=== PATIENT | female | born 1945 ===

== ENCOUNTER 2022-11-03 10:23 | Inpatient (IN) | payer OTHER ==
[~2022-11-03] VITALS: Ht 157.5 cm; Wt 44.9 kg
[2022-11-04] MEDS ORDERED: VALSAR PO (12:44)
[2022-11-04] MEDS ORDERED: ATORVASTATIN CA20 MG PO (12:44)
[2022-11-04] MEDS ORDERED: PREDISONE PO (12:45)
[2022-11-04] MEDS ORDERED: SINGULAIR10 MG PO (12:45)
[2022-11-04] MEDS ORDERED: WIXELA 100-501 EACH IH (12:46)
[2022-11-10] MEDS ORDERED: PROAIR RESPICL90 MCG (10:15)
[2022-11-10] MEDS ORDERED: GABAPENTIN100 M2 (10:15)
[2022-11-10] MEDS ORDERED: PREDNISONE2.5 MG (10:15)
[2022-11-10] MEDS ORDERED: VALSARTAN-HCTZ1 EACH (10:15)
[2022-11-12] MEDS ORDERED: INTESTINEX680 M1 PO (16:53)
[2022-11-12] MEDS ORDERED: TRAM1TAB98 PO (16:53)
[2022-11-12] MEDS ORDERED: LEVSIN/SL0.125 MG SL (16:53)
[2022-11-12] MEDS ORDERED: BACTRIM DS TAB1 EACH PO (16:54)
== END 2022-11-12 17:22 | disposition home or self-care (01) | DRG 331 ==
LOC: O/R 11-09 06:20 → SURG 11-09 06:20 → SURH 11-09 16:09 → SURG 11-09 16:12
PROVIDERS: ADMIT Surgery; ATTEND Surgery
PROC: 0DTP4ZZ Resection of Rectum, Percutaneous Endoscopic Approach (ICD-10-PCS; 2022-11-09)
PROC: 0DBN4ZZ Excision of Sigmoid Colon, Percutaneous Endoscopic Approach (ICD-10-PCS; 2022-11-09)
PROC: 0DBQ4ZZ Excision of Anus, Percutaneous Endoscopic Approach (ICD-10-PCS; 2022-11-09)
PROC: 0D1N4Z4 Bypass Sigmoid Colon to Cutaneous, Percutaneous Endoscopic Approach (ICD-10-PCS; principal; 2022-11-09 13:45)
PROC: 3E0F7GC Introduction of Other Therapeutic Substance into Respiratory Tract, Via Natural or Artificial Opening (ICD-10-PCS; 2022-11-10)
PROC: 4A12X4Z Monitoring of Cardiac Electrical Activity, External Approach (ICD-10-PCS; 2022-11-10)
DX: C21.1 Malignant neoplasm of anal canal (principal); I11.9 Hypertensive heart disease without heart failure; J45.20 Mild intermittent asthma, uncomplicated; Z20.822 Contact with and (suspected) exposure to COVID-19; Z86.718 Personal history of other venous thrombosis and embolism; Z79.52 Long term (current) use of systemic steroids; Z95.828 Presence of other vascular implants and grafts